=== PATIENT | female | born 1995 | race Caucasian/White ===

== ENCOUNTER 2017-08-02 19:51 | Emergency (ER) | payer MEDICAID, OTHER ==
[~2017-08-02] VITALS: Ht 157.5 cm; Wt 116.5 kg
[2017-08-02 20:27] VITALS: Ht 157.5 cm; Wt 116.5 kg
[2017-08-02] MEDS ORDERED: KETOROLAC 60 MG INJ IM STA (21:48)
--- NOTE | 2017-08-02 22:02 | ERD ---
ER Documentation Chief Complaint Date/Time DATE: 08/02/17 TIME: 22:00 Chief Complaint Right breast pain. Denies redness, lumps HPI 22-year-old female presents to emergency department for complaints of right breast pain that started yesterday. Patient describes the pain as throbbing pain,6/10 scale, not better or worse with anything. Patient denies any redness or swelling of the right breast area. Patient states that it hurts whenever she takes a deep breath at times. Patient denies any shortness of breath or wheezing. Patient denies any cough. Patient denies any nipple discharge or deformity. ROS All systems reviewed and are negative except as per history of present illness. Medications Home Meds Active Scripts Tramadol HCl (Tramadol HCl) 50 Mg Tablet, 50 MG PO Q6 Y for SEVERE PAIN LEVEL 7- 10, #20 TAB Prov:YENI YOUNG NP 08/02/17 Ibuprofen* (Motrin*) 600 Mg Tab, 600 MG PO Q6H Y for PAIN AND OR ELEVATED TEMP, #30 TAB Prov:YENI YOUNG [employer] 08/02/17 Reported Medications [none] Unknown Strength No Conflict Check 08/02/17 Allergies Allergies: Coded Allergies: No Known Allergy (Unverified , 05/21/13) PMhx/Soc Medical and Surgical Hx: pt denies Medical Hx History of Surgery: Yes (UMBILICAL SURGERY (ABSCESS)) Anesthesia Reaction: No Hx Neurological Disorder: No Hx Respiratory Disorders: No Hx Cardiac Disorders: No Hx Psychiatric Problems: No Hx Miscellaneous Medical Probl: Yes (admitted 08/11 for abdom abcess and uti) Hx Alcohol Use: Yes Hx Substance Use: No Hx Tobacco Use: No FmHx Family History: No coronary disease, No diabetes, No other Physical Exam Vitals Vital Signs Date Time Temp Pulse Resp B/P Pulse Ox O2 Delivery O2 Flow Rate FiO2 08/02/17 20:27 99.6 117 20 146/67 96 Physical Exam GENERAL: The patient is well developed and appropriate for usual state of health, in no apparent distress. CHEST: Clear to auscultation bilaterally. There are no rales, wheezes or rhonchi. Mild tenderness on palpation in the right breast area, no deformity noted, no redness, no swelling, no nipple discharge. HEART: Regular rate and rhythm. No murmurs, clicks, rubs or gallops. No S3 or S4. ABDOMEN: Soft, nontender and nondistended. Good bowel sounds. No rebound or guarding. No gross peritonitis. No gross organomegaly or masses. No Purvis sign or McBurney point tenderness. BACK: No midline or flank tenderness. EXTREMITIES: Equal pulses bilaterally. There is no peripheral clubbing, cyanosis or edema. No focal swelling or erythema. Full range of motion. Grossly neurovascularly intact. NEURO: Alert and oriented. Cranial nerves 2-12 intact. Motor strength in all 4 extremities with 5/5 strength. Sensation grossly intact. Normal speech and gait. SKIN: There is no apparent rash or petechia. The skin is warm and dry. HEMATOLOGIC AND LYMPHATIC: There is no evidence of excessive bruising or lymphedema. No gross cervical, axillary, or inguinal lymphadenopathy. Results 24 hrs Laboratory Tests Test 08/02/17 22:00 Urine Color YELLOW Urine Clarity CLEAR Urine pH 5.0 Urine Specific [place] 1.023 Urine Ketones NEGATIVEmg/dL Urine Nitrite NEGATIVEmg/dL Urine Bilirubin NEGATIVEmg/dL Urine Urobilinogen NEGATIVEmg/dL Urine Leukocyte Esterase NEGATIVELeu/ul Urine Microscopic RBC 3/HPF Urine Microscopic WBC 3/HPF Urine Mucus FEW/HPF Urine Hemoglobin 2+mg/dL Urine Glucose NEGATIVEmg/dL Urine Total Protein NEGATIVEmg/dl Current Medications Medications (Trade) Dose Ordered Sig/Tato Route PRN Reason Start Time Stop Time Status Last Admin Dose Admin Ketorolac Tromethamine (Toradol) 60 mg ONCE STAT IM 08/02/17 21:48 08/02/17 21:50 DC 08/02/17 22:24 Patient was given medication for pain here in emergency department, after treatment, patient verbalized feeling much better. Patient's pain is improved. EKG was done, read by me and is sinus tachycardia at 109 bpm, normal axis, there is no ST changes or changes in the EKG that indicates any cardiac emergencies at this time. Patient's EKG was also reviewed by Dr. Kern Impression: no acute findings on EKG PROCEDURE: XR Chest. CLINICAL INDICATION: Right chest pain. TECHNIQUE: Single frontal view. COMPARISON: None. FINDINGS: The lungs are clear. The heart size is normal. There is no pleural effusion. There is no pneumothorax. IMPRESSION: 1. Normal chest radiograph. RPTAT: QQ .Steve Li MD, Date Time Electronically viewed and signed by .Steve Li MD, on 08/02/2017 23:09 .R/ CC: YENI YOUNG NP Procedures/MDM Medical Decision Making: Symptoms of breast pain nonspecific at this time, no palpable mass, no erythema, no symptoms of any abscess. Patient's heart is a little bit elevated at 109 bpm, patient does admit to feeling anxious at times when going to the hospital. No symptoms of any SVTs, no symptoms of any acute emergent oriented suspicion for this. There is low suspicion for cardiopulmonary emergencies at this time. Patient has low risk factors. EKG is normal, there is no changes in the EKG that indicates cardiac emergencies. Chest X-ray does not show cardiopulmonary emergencies at this time. There is low suspicion for aortic aneurysm, myocardial infarction, pneumothorax, pleural effusion, pulmonary embolism, or any other cardiopulmonary emergencies at this time. Prescription was given for ibuprofen, tramadol, is advised to follow-up with primary care doctor or gyne for referral for ultrasound of the breast, patient was returned to [facility] for any worsening. Dispostion: Home. Stable Disclaimer: Inadvertent spelling and grammatical errors are likely due to EHR/ dictation software use and do not reflect on the overall quality of patient care. Also, please note that the electronic time recorded on this note does not necessarily reflect the actual time of the patient encounter. Departure Diagnosis: Primary Impression: Breast pain Condition: Stable Patient Instructions: Breast Self-Exam (BSE) Additional Instructions: Prescription was given for ibuprofen, tramadol, is advised to follow-up with primary care doctor or gyne for referral for ultrasound of the breast, patient was returned to [facility] for any worsening. YENI YOUNG NP Aug 02, 2017 22:02
[2017-08-02 22:49] LABS: ADD UMIC YES; UR ASCORBIC ACID NEGATIVE (NEGATIVE); UR BILIRUBIN (Dip) NEGATIVE (NEGATIVE); UR BLOOD (Dip) 2+ mg/dL (NEGATIVE); UR CLARITY CLEAR (CLEAR); UR COLOR YELLOW (YELLOW); UR GLUCOSE (Dip) NEGATIVE (NEGATIVE); UR KETONES (Dip) NEGATIVE (NEGATIVE); UR LEUKOCYTE ESTERASE (Dip) NEGATIVE Leu/ul (NEGATIVE); UR MUCUS FEW /HPF (NONE SEEN); UR NITRITE (Dip) NEGATIVE (NEGATIVE); UR RBC 3 /HPF (0-5); UR SPECIFIC GRAVITY (Dip) 1.023 (1.003-1.030); UR TOTAL PROTEIN (Dip) NEGATIVE (NEGATIVE); UR UROBILINOGEN (Dip) NEGATIVE (NEGATIVE)
--- NOTE | 2017-08-02 23:09 | RADRPT ---
PROCEDURE: XR Chest. CLINICAL INDICATION: Right chest pain. TECHNIQUE: Single frontal view. COMPARISON: None. FINDINGS: The lungs are clear. The heart size is normal. There is no pleural effusion. There is no pneumothorax. IMPRESSION: 1. Normal chest radiograph. RPTAT: QQ .Steve Li MD, Date Time Electronically viewed and signed by .Steve Li MD, on 08/02/2017 23:09 .R/
[2017-08-02] MEDS ORDERED: IBUP-1542 PO (23:16)
[2017-08-02] MEDS ORDERED: TRAM50TA2 PO (23:16)
[2017-08-02 23:31] VITALS: BP 135/72; PULSE 86; RESP 18
== END 2017-08-02 23:32 | disposition home or self-care (01) ==
LOC: FTE 19:51
DX: N64.4 Mastodynia (principal)
CPT/HCPCS: 71010; 81001; 93005; 96372; 99285; J1885

== ENCOUNTER 2019-06-03 20:20 | Emergency (ER) | payer OTHER ==
[~2019-06-03] VITALS: Ht 149.9 cm; Wt 120.0 kg
[~2019-06-03 20:20] MED LIST: BEN25 PO; EPIN0.3P4 INJ; FAMO-96 PO; IBUP-1542 PO; LORA10TA3 PO; ONDA4TAB14 PO; PRED20TA PO; TRAM50TA2 PO
[2019-06-03 20:27] VITALS: Ht 149.9 cm; Wt 120.0 kg
[2019-06-03] MEDS ORDERED: ONDANSETRON (ODT) 4 MG TAB ODT STA (21:27)
--- NOTE | 2019-06-03 21:27 | ERD ---
ER Documentation Chief Complaint Chief Complaint generalize body rash since yesterday. seen at clinic yesterday. lungs clear HPI This is a 24-year-old female presents to the emergency department with complaints of generalized rash and itchiness since yesterday. Stated that she was given a shot with unknown name and was prescribed with Zyrtec. Stated that she still has a rash with itchiness today. LMP: 6 months ago. G0, . Denies headache, head injury, loss of consciousness, dizziness, neck pain, neck stiffness, throat pain, difficulty swallowing, difficulty breathing lying flat, shoulder pain, chest pain, back pain, abdominal pain, nausea, vomiting, constipation, diarrhea, urinary symptoms, or possibility being , loss of bowel and bladder control, trauma, injury, falls, difficulty walking due to pain, numbness or tingling sensation, calf pain, recent travel, recent major surgery in the last 3 weeks, calf pain, recent long travel, recent exposure to any illness, recent antibiotic use in the last 3 months, fever, chills, seizures. Past medical history: Denies. Surgical history: Denies. Social: Denies smoking, use of alcoholic beverages, use of illegal drugs. ROS All systems reviewed and are negative except as per history of present illness. Medications Home Meds Active Scripts Prednisone* (Prednisone*) 20 Mg Tab, 40 MG PO DAILY for 4 Days, TAB Prov:MISSY OLIVEIRA 06/03/19 Ondansetron (Ondansetron Odt) 4 Mg Tab.rapdis, 4 MG PO Q6H PRN for NAUSEA AND/OR VOMITING, #20 TAB Prov:MISSY OLIVEIRA 06/03/19 Diphenhydramine Hcl* (Benadryl*) 25 Mg Cap, 25 MG PO Q6 PRN for ITCHING/RASH, #30 TAB Prov:MISSY OLIVEIRA 06/03/19 Loratadine* (Loratadine*) 10 Mg Tablet, 10 MG PO DAILY, #30 TAB Prov:MISSY OLIVEIRA 06/03/19 Famotidine* (Pepcid*) 20 Mg Tablet, 40 MG PO DAILY for 30 Days, TAB Prov:MISSY OLIVEIRA 06/03/19 Epinephrine (Epipen 2-Virgil) 0.3 Mg/0.3 Ml Pen.injctr, 1 EA INJ ONCE PRN for ALLERGIC REACTION, #1 EA Prov:MISSY OLIVEIRA 06/03/19 Tramadol HCl (Tramadol HCl) 50 Mg Tablet, 50 MG PO Q6 PRN for SEVERE PAIN LEVEL 7-10, #20 TAB Prov:YENI YOUNG NP 08/02/17 Ibuprofen* (Motrin*) 600 Mg Tab, 600 MG PO Q6H PRN for PAIN AND OR ELEVATED TEMP, #30 TAB Prov:YENI YOUNG NP 08/02/17 Reported Medications [none] Unknown Strength No Conflict Check 08/02/17 Allergies Allergies: Coded Allergies: No Known Allergy (Unverified , 05/21/13) PMhx/Soc History of Surgery: Yes (UMBILICAL SURGERY (ABSCESS)) Anesthesia Reaction: No Hx Neurological Disorder: No Hx Respiratory Disorders: No Hx Cardiac Disorders: No Hx Psychiatric Problems: No Hx Miscellaneous Medical Probl: Yes (admitted 08/11 for abdom abcess and uti) Hx Alcohol Use: Yes Hx Substance Use: No Hx Tobacco Use: No Smoking Status: Never smoker Physical Exam Vitals Vital Signs Date Temp Pulse Resp B/P (MAP) Pulse Ox O2 O2 Flow FiO2 Time Delivery Rate 06/03/19 98.0 84 16 128/73 100 22:16 (91) 06/03/19 99.2 93 18 137/73 98 20:27 (94) Physical Exam Const: No acute distress Head: Atraumatic Eyes: Normal Conjunctiva. No conjunctival injection. ENT: Normal External Ears, Nose and Mouth. Bilateral ear: TM is not erythematous. No bleeding. No discharge. No hearing loss. No mastoid tenderness. Nose: No nasal flaring. No signs of obstruction. Throat/Lips: No lip swelling. No tongue swelling. Able to control tongue movement. No drooling. Uvula is in midline and non-displaced. Tonsils are + 1 with no redness and no exudates. Tolerating secretions. Patent airway. Speaks full and clear sentences. No tripoding. Neck: Full range of motion. No meningismus. Nuchal rigidity. No signs of meningeal irritation. Resp: Clear to auscultation bilaterally. No retraction noted. No accessory muscle use in breathing. Cardio: Regular rate and rhythm, no murmurs. Abd: Soft, non tender, non distended. Normal bowel sounds. No abdominal tenderness. Skin: No petechiae. Generalized hives. No vesicular lesions. Back: No midline or flank tenderness Ext: No cyanosis, or edema Neur: Awake and alert. No neurological deficit.. Psych: Normal Mood and Affect Results 24 hrs Current Medications Medications Dose Sig/Tato Start Time Status Last (Trade) Ordered Route PRN Stop Time Admin Dose Reason Admin 125 mg ONCE ONCE 06/03/19 DC 06/03/19 Methylprednis IM 21:30 21:46 olone Sodium 06/03/19 21:31 Succinate (Solu-Medrol) Famotidine 40 mg ONCE ONCE 06/03/19 DC 06/03/19 (Pepcid) PO 21:30 21:45 06/03/19 21:31 25 mg ONCE ONCE 06/03/19 DC 06/03/19 Diphenhydrami PO 21:30 21:45 ne HCl 06/03/19 21:31 (Benadryl) Ondansetron 4 mg ONCE STAT 06/03/19 DC 06/03/19 HCl (Zofran ODT 21:27 21:45 Odt) 06/03/19 21:29 Procedures/MDM Diagnostic tests: Clinical exam. Treatment: Solu-Medrol IM. Pepcid p.o. Benadryl p.o. Zofran ODT. Re-evaluation: Rashes and hives has decreased tremendously. No drooling. No tripoding. Speaks full and clear sentences. No accessory muscle use in breathing. Lung sounds are clear to auscultation. Stated that she feels much better at this time and that she is ready to go home. Stated that she is comfortable to go home. Differential diagnosis I have low suspicion for anaphylaxis, anaphylactic shock, angioedema, airway obstruction, pneumonia, aspiration pneumonia, bronchospasms, Robertson-Balbir syndrome, scabies, chickenpox. Final diagnosis: Allergic reaction. Hives. Prescription: Benadryl. Pepcid. Claritin. Prednisone. EpiPen. Follow-up with PCP in the next 24-48 hours. PCP to do an allergy test for environmental and food. PCP to refer patient to rehab specialist and/or ict business development manager in the next 24 to 48 hours. Come back here in the emergency department for any new symptoms or any worsening symptoms. All questions and concerns were answered. Patient and family members verbalized understanding and agreed with plan of care. Hemodynamically stable on discharge. Departure Diagnosis: Primary Impression: Rash Additional Impressions: Allergic reaction Hives Condition: Stable Additional Instructions: Follow-up with PCP in the next 24-48 hours. PCP to do an allergy test for environmental and food. PCP to refer patient to rehab specialist and/or ict business development manager in the next 24 to 48 hours. Come back here in the emergency department for any new symptoms or any worsening symptoms. MISSY OLIVEIRA Jun 03, 2019 21:27
[2019-06-03] MEDS ORDERED: DIPHENHYDRAMINE 25 MG CAP PO ONE (21:30)
[2019-06-03] MEDS ORDERED: METHYLPREDNISOLONE 125 MG INJ IM ONE (21:30)
[2019-06-03] MEDS ORDERED: FAMOTIDINE 20 MG TAB PO ONE (21:30)
[2019-06-03 22:16] VITALS: BP 128/73; PULSE 84; RESP 16
== END 2019-06-03 22:16 | disposition home or self-care (01) ==
LOC: FTE 20:20
DX: L50.0 Allergic urticaria (principal)
CPT/HCPCS: 96372; 99284; J2930